=== PATIENT | female | born 1965 | race Hispanic/Latino ===

== ENCOUNTER 2018-05-04 13:37 | Emergency (ER) | payer BC, OTHER ==
[~2018-05-04] VITALS: Ht 154.9 cm; Wt 113.4 kg
[~2018-05-04 13:37] MED LIST: GLIMEPIRIDE PO; METFORMIN HCL1000 M1 PO; MICARDIS HCT 81 EACH PO; TRILIPIX135 MG PO
[2018-05-04] MEDS ORDERED: MORPHINE SULFATE 2 MG/ML SYR IM STA (14:03)
[2018-05-04] MEDS ORDERED: KETOROLAC TROMETHAMINE 60 MG/2 ML VIAL IM ONE (14:15)
[2018-05-04] MEDS ORDERED: DEXAMETHASONE SOD PHOS 10 MG/1 ML VIAL INJ ONE (14:15)
[2018-05-04 15:20] VITALS: BP 142/75
== END 2018-05-04 15:23 | disposition home or self-care (01) ==
LOC: ER 13:37 → FSED 15:23
DX: M54.42 Lumbago with sciatica, left side (principal); I10 Essential (primary) hypertension; E11.9 Type 2 diabetes mellitus without complications; E78.00 Pure hypercholesterolemia, unspecified
CPT/HCPCS: 96372; 99283; J1100; J1885; J2270